=== PATIENT | male | born 1970 | race Caucasian/White ===

== ENCOUNTER 2018-04-08 13:44 | Emergency (ER) | payer BC, OTHER ==
[~2018-04-08] VITALS: Ht 172.7 cm; Wt 117.9 kg
[2018-04-08 14:38] LABS: ABSOLUTE NEUTROPHILS 6.6 thou/uL (1.4-8.2); BASOPHILS 0.9 % (0.0-2.0); EOSINOPHILS 4.6 % (0.0-3.0); HEMATOCRIT 48.6 % (42.0-52.0); HEMOGLOBIN 16.7 gm/dL (14.0-18.0); LYMPHOCYTES 17.8 % (24.0-44.0); MCH 30.2 pg (26.0-34.0); MCHC 34.3 g/dL (28.0-37.0); MCV 88.1 fL (80.0-100.0); MONOCYTES 9.1 % (1.0-8.0); PLATELET COUNT 315 thou/uL (150-400); POLYS 67.6 % (36.0-66.0); RBC 5.52 mil/uL (4.50-6.00); RDW 13.8 % (10.5-14.5); WBC 9.7 thou/uL (4.0-11.0)
[2018-04-08 14:46] LABS: POTASSIUM 3.7 mmol/L (3.5-5.1)
[2018-04-08] MEDS ORDERED: SENNA-DOCUSATE1 EAC1 PO (15:33)
[2018-04-08] MEDS ORDERED: NORCO 5-325 TA1 EACH PO (15:33)
[2018-04-08] MEDS ORDERED: NAPROSYN500 MG PO (15:33)
[2018-04-08 15:48] VITALS: BP 151/72
== END 2018-04-08 15:49 | disposition home or self-care (01) ==
LOC: ER 13:44
PROVIDERS: Emergency Medicine
DX: M66.0 Rupture of popliteal cyst (principal); R60.0 Localized edema; F17.220 Nicotine dependence, chewing tobacco, uncomplicated; J45.909 Unspecified asthma, uncomplicated

== ENCOUNTER → 2018-04-27 | Outpatient (CLI) | payer BC, OTHER ==
[~2018-04-27] MED LIST: NAPROSYN500 MG PO; NORCO 5-325 TA1 EACH PO; SENNA-DOCUSATE1 EAC1 PO
== END ==
LOC: MRI 07:20
DX: M23.321 Other meniscus derangements, posterior horn of medial meniscus, right knee (principal); M17.11 Unilateral primary osteoarthritis, right knee; M25.461 Effusion, right knee; M71.21 Synovial cyst of popliteal space [Baker], right knee; M25.761 Osteophyte, right knee

== ENCOUNTER 2018-05-13 05:24 | Day surgery (SDC) | payer BC, OTHER ==
[~2018-05-13] VITALS: Ht 172.7 cm; Wt 117.9 kg
--- NOTE | ~2018-05-13 | O ---
[facility] [place] [address] OPERATIVE REPORT Name: PALLAVI MCGRATH Room #: DEP [facility] Wood#: [id number] Admission: 05/13/18 Attend Phys: Jaison Soares MD Discharge: 05/13/18 Date of : 70 Report #: [id number] THIS REPORT FOR: //name// CC: EVIN physician/PCP Jaison Soares DATE OF SERVICE: 05/13/2018 PREOPERATIVE DIAGNOSIS: Right knee medial meniscus tear. POSTOPERATIVE DIAGNOSES: 1. Root tear of the posterior horn of the medial meniscus, right knee. 2. Grade 3 chondromalacia, medial femoral condyle. 3. Loose body, lateral gutter, right knee. PROCEDURES: 1. Right knee arthroscopy with partial medial meniscectomy. 2. Chondroplasty, medial femoral condyle. 3. Loose body removal, right knee. SURGEON: Jaison Soares MD [employer] OPERATOR: Arlene Cabrera PA-C. ANESTHESIA: LMA. TOURNIQUET TIME: Approximately 20 minutes. COMPLICATIONS: None. SPECIMENS: None. CONDITION UPON LEAVING THE OPERATING ROOM: Stable. INDICATIONS FOR PROCEDURE: The patient is a 48-year-old gentleman who has had medial-sided right knee pain. He had an MRI scan showing to have a tear of the root of the posterior horn of the medial meniscus and after discussion with him, he elected for right knee arthroscopy with partial medial meniscectomy and debridement as needed. DESCRIPTION OF PROCEDURE: Risks, benefits, alternatives and complications were discussed in detail with the patient including, but not limited to, risk of anesthesia, risk of damage to nerves, arteries and blood vessels, risk for infection, bleeding, risk for continued knee pain and need for reoperation. Informed consent was obtained from the patient. Right knee was appropriately marked in the preoperative holding area and brought to the operating room and [address] [address] OPERATIVE REPORT Name: PALLAVI MCGRATH Room #: DEP TING Muir#: [id number] Admission: 05/13/18 Attend Phys: Jaison Soares MD Discharge: 05/13/18 Date of : 70 Report #: [id number] placed in supine position on the operating room table. LMA anesthesia was induced without complication. Tourniquet was placed on the right thigh. Right lower extremity was prepped and draped in normal sterile fashion. Timeout was performed properly identifying the patient and procedure as well as the instrumentation and implants and all in the operating room were in agreement. Right lower extremity was exsanguinated, tourniquet was inflated. Tourniquet time was approximately 20 minutes. Standard anterolateral portal was established with an 11 blade through the skin. Arthroscope was introduced into the patellofemoral compartment. Diagnostic arthroscopy was undertaken. Patellofemoral compartment demonstrated grade 2 chondromalacia of the patella. Medial gutter was visualized and found to be without pathology. Medial compartment was visualized and medial portal was established under arthroscopic visualization. Probe was introduced in the medial compartment. There was noted to be a root tear of the posterior horn of the medial meniscus. This was trimmed back with arthroscopic biter and smoothed back with a shaver. In addition, there was a large amount of grade 3 chondromalacia of the medial femoral condyle with several unstable cartilaginous flaps. These were smoothed back with oscillating shaver. Notch was visualized and found to have an intact anterior cruciate ligament. Lateral compartment was visualized and found to have an intact lateral meniscus. Lateral gutter was visualized and there was an adherent loose body to the lateral gutter tissue. This was removed with an oscillating shaver. After this, all fluid was allowed to drain from the knee. Knee was injected with 10 mL 0.5% Marcaine. Incision was closed with 3-0 nylon. Soft dressing of Adaptic, 4 x 4, Webril, Luca wrap were applied. The patient tolerated this procedure well and went to recovery room under care of anesthesia postoperatively. <ELECTRONICALLY SIGNED> By: Jaison Soares MD 05/14/18 [id number] [id number] Jaison Soares MD /nt
[~2018-05-13 05:24] MED LIST changes: +BREO ELLIPTA 21 EACH INH
[2018-05-13] MEDS ORDERED: NORCO 5-325 TA1 EACH PO (15:05)
== END 2018-05-13 16:05 | disposition home or self-care (01) ==
LOC: OR 05:24 → TBA 05:25 → OR 07:30
DX: M23.221 Derangement of posterior horn of medial meniscus due to old tear or injury, right knee (principal); M22.41 Chondromalacia patellae, right knee; M23.41 Loose body in knee, right knee; Z68.39 Body mass index [BMI] 39.0-39.9, adult; J45.909 Unspecified asthma, uncomplicated; Z98.890 Other specified postprocedural states
CPT/HCPCS: 50010; 50101; 50405; 51038; 54170; 56526; 57103; 62110; 62900; 70005